=== PATIENT | female | born 1965 | race Caucasian/White ===

== ENCOUNTER 2018-06-07 12:06 | Emergency (ER) | payer BC, OTHER ==
--- NOTE | 2018-06-07 13:09 | EDPHY ---
HPI/HX/ROS/PE/MDM Narrative: CHIEF COMPLAINT: Off-balance, shaky HISTORY OF PRESENT ILLNESS: The patient is an anticoagulated (Brilinta) 52 y/o female with a history of a cardiac stent complaining of feeling off-balance and shaky, onset 9 AM, 4 hours ago. She lives in [place] and flew to [place]. The flight was delayed and she had a few drinks at the airport before landing in [place] around 1:30 AM this morning. She got about 4 hours of sleep and awoke feeling slightly hungover with some mild nausea and fatigue. Over the next few hours her symptoms progressed to include feeling off-balance when turning her head and shakiness. She reports being more easily winded but that this is normal when she is at altitude. She denies chest pain, headache, palpitations, vomiting, or history of blood clots. She forgot to take her metoprolol last night. She drank half a bottle of pedialyte this morning and feels that helped her slightly. She is flying back to [facility]. The patient also reports a string of colds last month. No fever, chills, chest pain, shortness of breath, palpitations, vomiting, diarrhea, urinary complaints, headache. REVIEW OF SYSTEMS: A comprehensive 10 system review of systems is otherwise negative aside from elements mentioned in the history of present illness and medical decision making PAST MEDICAL HISTORY: Cardiac stent SOCIAL HISTORY: Here for her brother's memorial, lives in [place], grew up in [place] VITAL SIGNS: Reviewed by me GENERAL: Well-developed, well-nourished, resting comfortably in no respiratory distress. HEENT: Atraumatic. Eyes: No icterus, no injection. Mouth: moist mucous membranes. No erythema or lesions. Neck: supple with no adenopathy. LUNGS: Clear to auscultation bilaterally, no wheezes, rhonchi or rales. CARDIAC: Regular rate and rhythm, no rubs, murmurs or gallops. ABDOMEN: Soft, nontender, nondistended, bowel sounds normal. BACK: No CVA tenderness. EXTREMITIES: No trauma. No edema. Range of motion is normal throughout. NEURO: Alert and oriented. Slight tremor. No nystagmus. SKIN: Warm and dry, no rash. PSYCHIATRIC: Normal mentation, no agitation. ED Course: The patient presents with feeling off-balance and shaky. She felt normal yesterday and flew to [place] from [place]. She had several drinks last night and did not sleep much. On exam, she has a slight tremor but no nystagmus. Plan for labs including CBC, basic metabolic panel, troponin, lipase, and alcohol level, EKG, and 25 mg meclizine PO and 1 L NS fluids for symptoms. 2:30 PM - I reassessed the patient and found her condition improved. Patient continues to have mild tremor in feels slightly dizzy. We discussed possible etiologies including cardiac as well as alcohol withdrawal. Patient feels that her symptoms are related to her excessive alcohol yesterday as well as dehydration from altitude. We will continue to hydrate, provide additional Ativan if needed, and will repeat EKG and troponin 4 hr for further cardiac evaluation. The 4:00 PM - The patient reports feeling much better. She denies any dizziness currently. She has denied further workup. She wishes to be discharged to make her flight to [place]. She understands that the possibility of acute coronary syndrome, although low, is still a possibility given her history coronary artery disease. I have instructed her to follow up with her shaper and presser when she returns home. She agrees to this course of action. MDM: Differential diagnosis of the patient's dizziness was considered including but not limited to peripheral and central causes of vertigo, cardiac arrhythmias, cardiac ischemia, electrolyte disturbances, alcohol intoxication, alcohol withdrawal, neurologic causes, orthostatic causes including dehydration, and blood loss. - Data Points Laboratory Results: Laboratory Results 06/07/18 12:50 06/07/18 12:50 Medications Given: Discontinued Medications Sodium Chloride (Ns) 1,000 mls @ 0 mls/hr IV ONCE ONE; Wide Open PRN Reason: Protocol Stop: 06/07/18 13:23 Last Admin: 06/07/18 13:28 Dose: 1,000 mls Sodium Chloride (Ns) 1,000 mls @ 0 mls/hr IV ONCE ONE; Wide Open PRN Reason: Protocol Stop: 06/07/18 14:46 Last Admin: 06/07/18 14:46 Dose: 1,000 mls Sodium Chloride (Ns) 1,000 mls @ 0 mls/hr IV ONCE ONE; Wide Open PRN Reason: Protocol Stop: 06/07/18 14:50 Last Admin: 06/07/18 15:01 Dose: Not Given Lorazepam (Ativan Injection) 1 mg IVP EDNOW ONE Stop: 06/07/18 14:50 Last Admin: 06/07/18 15:07 Dose: 1 mg Meclizine HCl (Meclizine Hcl) 25 mg PO EDNOW ONE Stop: 06/07/18 13:23 Last Admin: 06/07/18 13:28 Dose: 25 mg Point of Care Test Results: Chemistry 06/07/18 06/07/18 15:47 13:20 POC Troponin I 0.00 ng/mL ng/mL 0.00 ng/mL ng/mL (0.00-0.08) (0.00-0.08) General Time Seen by Provider: 06/07/18 12:55 Initial Vital Signs: Initial Vital Signs Temperature (C) 37 C 06/07/18 12:13 Heart Rate 88 06/07/18 12:13 Respiratory Rate 18 06/07/18 12:13 Blood Pressure 167/104 H 06/07/18 12:13 O2 Sat (%) 99 06/07/18 12:13 O2 Delivery Mode Room Air Allergies/Adverse Reactions: codeine Allergy (Verified 06/07/18 12:13) erythromycin base Allergy (Verified 06/07/18 12:13) Home Medications: Medication Instructions Recorded Atorvastatin Calcium 06/07/18 Brilinta 06/07/18 Levothyroxine 06/07/18 Metoprolol Succinate 06/07/18 Zetia 06/07/18 buPROPion SR 06/07/18 Departure - Departure Disposition: Home, Routine, Self-Care Clinical Impression: Dizziness Alcohol withdrawal Qualifiers: Complication of substance-induced condition: uncomplicated Qualified Code(s): F10.230 - Alcohol dependence with withdrawal, uncomplicated Condition: Good Instructions: Dizziness (ED), Alcohol Withdrawal (ED) Additional Instructions: 1. You have been offered further evaluation to determine if your symptoms are cardiac in nature and you have declined further work up today. Please follow up with your shaper and presser when you return to [place]. 2. Please drink plenty of fluid, get plenty of rest, and avoid excessive alcohol intake. 3. Please return to the emergency department or seek care urgently if your symptoms are worsening, especially if you developed shortness of breath, chest pain, lightheadedness, fainting, vomiting, or other concerns. Referrals: NONE *PRIMARY CARE P,. [Primary Care Provider] - As per Instructions Gurpreet Khan MD [Medical Doctor] - As per Instructions Report Scribed for: Jada Denney Report Scribed by: Liliam Bradley Date of Report: 06/07/18 Time of Report: 13:49 Physician Review and Approval Statement: Portions of this note were transcribed by a medical pathologist. I personally performed a history, physical exam, medical decision making, and confirmed accuracy of information the transcribed note.
[2018-06-07 13:12] LABS: PLATELET COUNT 286 10^3/uL (150-400)
[2018-06-07] MEDS ORDERED: MECLIZINE HCL 25 MG TAB PO ONE (13:22)
[2018-06-07] MEDS ORDERED: NS 1,000 ML IV ONE ×3 (13:22→14:49)
[2018-06-07] MEDS ORDERED: LORazepam 2 MG/ML INJ IVP ONE (14:49)
[2018-06-07 16:33] VITALS: BP 125/82
--- NOTE | 2018-06-07 22:49 | CPEKG ---
Test Reason : OPEN Blood Pressure : / mmHG Vent. Rate : 082 BPM Atrial Rate : 082 BPM P-R Int : 164 ms QRS Dur : 093 ms QT Int : 387 ms P-R-T Axes : 059 055 042 degrees QTc Int : 452 ms Sinus rhythm Confirmed by Jada Denney ([id number]) on 06/07/2018 10:48:33 PM Referred By: Jada Denney Confirmed By:Jada Denney
== END 2018-06-07 16:32 | disposition home or self-care (01) ==
DX: R42 Dizziness and giddiness (principal); Z79.01 Long term (current) use of anticoagulants; Z95.5 Presence of coronary angioplasty implant and graft
CPT/HCPCS: 84484-ER; 96374; G0480; J2060